=== PATIENT | male | born 1995 | race Caucasian/White ===

== ENCOUNTER 2017-03-02 12:58 | Emergency (ER) | payer OTHER ==
[~2017-03-02] VITALS: Ht 175.3 cm; Wt 76.1 kg
[~2017-03-02 12:58] MED LIST: STATES NO HOME MEDS
[2017-03-02 13:04] VITALS: Ht 175.3 cm; Wt 76.1 kg
[2017-03-02] MEDS ORDERED: LORAZEPAM 2 MG/ML 1 ML VIAL IV STA (13:56)
[2017-03-02] MEDS ORDERED: SODIUM CHLORIDE 0.9% 1000ML 1,000 ML IV ONE ×2 (14:00)
[2017-03-02 14:21] LABS: BASO % 0.1 %; BASO ABS # 0.01 K/uL (0-0.2); COMPLETE YES; EOS % 0.4 %; HEMATOCRIT 45.6 % (42-52); IG% 0.3 %; LYMPH % 16.3 %; MEAN CELL VOLUME 87.4 fL (80-100); MEAN CORPUSCULAR HEMOGLOBIN 29.5 pg (25-34); MEAN CORPUSCULAR HGB CONC 33.8 g/dl (32-36); MEAN PLATELET VOLUME 9.9 fL (7.4-10.4); MONO % 4.9 %; PLATELET COUNT 199 K/uL (130-400); RED BLOOD COUNT 5.22 M/uL (4.7-6.1); WHITE BLOOD COUNT 7.34 K/uL (4.8-10.8)
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
[2017-03-02 14:38] LABS: URINE APPEARANCE CLEAR (CLEAR); URINE BILIRUBIN NEG (NEG); URINE COLOR YELLOW; URINE NITRITE NEG (NEG); URINE SPECIFIC GRAVITY 1.021 (1.000-1.030); UROBILINOGEN NEG (NEG)
[2017-03-02 14:44] LABS: BUN/CREATININE RATIO 14.9 (10-20); CALCIUM 9.2 mg/dl (8.5-10.1); CREATININE 0.91 mg/dl (0.60-1.40); POTASSIUM 3.9 mmol/L (3.5-5.1)
[2017-03-02 14:47] LABS: MANUAL MICROSCOPIC REQUIRED? NO; REVIEW REQ? NO
[2017-03-02 14:47] LABS: ALB/GLOB RATIO 1.2 (0.9-2)
--- NOTE | 2017-03-02 14:54 | DIAGNOSTIC IMAGING REPORT ---
HEAD WITHOUT CONTRAST (CT) CT DOSE: 537.48 mGy.cm HISTORY: Neuropathy. Headache. R sided numbness tingling TECHNIQUE: Multiaxial CT images of the head were performed without the use of intravenous contrast. Comparison: None. Findings: The paranasal sinuses and mastoid air cells are clear. The calvarium and skull base are intact. The ventricles and sulci are within normal limits. There is no mass, hematoma, midline shift, or acute infarct. Impression: No acute intracranial abnormality. The above report was generated using voice recognition software. It may contain grammatical, syntax or spelling errors. Electronically signed by: Bhaskar Contreras M.D. 03/02/2017 2:53 PM Dictated Date/Time: 03/02/2017 2:52 PM
[2017-03-02 14:59] LABS: BENZODIAZEPINE, URINE NEG (NEG); COCAINE,URINE NEG (NEG); PHENCYCLIDINE, URINE NEG (NEG)
[2017-03-02 15:25] LABS: LYME DISEASE AB IGG NEG (NEG); LYME DISEASE AB IGM NEG (NEG)
[2017-03-02] MEDS ORDERED: LORA-741 PO (16:28)
[2017-03-02 16:31] VITALS: BP 132/70; PULSE 86; TEMP 37; O2SAT 96
== END 2017-03-02 16:32 | disposition home or self-care (01) ==
LOC: C.EDB 13:01 → C.EDC 16:32
DX: R29.818 Other symptoms and signs involving the nervous system (principal); F41.9 Anxiety disorder, unspecified; F17.200 Nicotine dependence, unspecified, uncomplicated; Z87.820 Personal history of traumatic brain injury

== ENCOUNTER → 2017-04-09 | Outpatient (CLI) | payer OTHER ==
[~2017-04-09] MED LIST changes: +GADAVIST IV PRN; -STATES NO HOME MEDS
--- NOTE | 2017-04-09 14:23 | DIAGNOSTIC IMAGING REPORT ---
BRAIN COMBO CLINICAL HISTORY: 22 years-old Male presenting with right-sided numbness and tingling with headache. TECHNIQUE: Multisequence, multiplanar MR imaging of the brain was performed before and after the administration of intravenous contrast. IV contrast: 7 mL of Gadavist. COMPARISON: 03/18/2015. FINDINGS: Ventricles and sulci normal in size. Brain parenchyma normal in appearance with preserved steward-white differentiation. No mass effect or midline shift. No hemorrhage or acute territorial infarct. No extra-axial fluid collection. T2 skull base flow voids preserved. No abnormal parenchymal enhancement. Bone marrow signal intensity within the calvarium within normal limits. IMPRESSION: No acute intracranial abnormality. No abnormal enhancement. Electronically signed by: Adán Rashid M.D. 04/09/2017 2:22 PM Dictated Date/Time: 04/09/2017 2:17 PM
== END | disposition home or self-care (01) ==
LOC: C.MRIBC 13:18
PROVIDERS: ATTEND Physician Assistant
DX: R20.0 Anesthesia of skin (principal); R20.2 Paresthesia of skin; R51 Headache

== ENCOUNTER → 2017-05-02 | Outpatient (CLI) | payer OTHER ==
--- NOTE | 2017-05-02 16:11 | EEG Procedure Note ---
EEG Procedure Note Date of Service May 02, 2017. Start / End Times Start Time: 1:42 PM End Time: 2:03 PM Referring Physician [place] Klein History This is a 22-year-old male who presents with numbness, trouble finding words, and memory issues. EEG for further evaluation of possible seizure etiology. Description This is a 21 electrode EEG with a single channel dedicated to limited EKG. The electrodes were placed in accordance with the International 10-20 system. At the start of the recording the patient was in an awake state. Background was well organized and composed of symmetric mixed alpha and beta frequencies. There was a symmetric well-formed moderate amplitude 11 Hz posterior dominant rhythm that was reactive to eye opening and closure. Hyperventilation was not done. Intermittent photic stimulation at various frequencies produced no abnormalities. There was no state changes or sleep transients. Interpretation This is a normal awake only routine EEG. There was no electrographic seizures or epileptiform discharges. Clinical Correlation A normal EEG does not rule out epilepsy if there is a strong clinical suspicion.
== END | disposition home or self-care (01) ==
LOC: C.NEUR 13:31
PROVIDERS: ATTEND Physician Assistant
DX: R29.818 Other symptoms and signs involving the nervous system (principal); R20.0 Anesthesia of skin

== ENCOUNTER 2017-07-14 13:04 | Emergency (ER) | payer OTHER ==
[~2017-07-14] VITALS: Ht 175.3 cm; Wt 71.9 kg
[2017-07-14 13:10] VITALS: TEMP 36.9; Ht 175.3 cm; Wt 71.9 kg
[2017-07-14] MEDS ORDERED: ONDANSETRON 4MG OD TAB PO STA (13:48)
[2017-07-14] MEDS ORDERED: FAMOTIDINE 20 MG TAB PO ONE (14:00)
--- NOTE | 2017-07-14 14:31 | DIAGNOSTIC IMAGING REPORT ---
SOFT TISSUE NECK CLINICAL HISTORY: Neck swelling. COMPARISON STUDY: None. FINDINGS: 2 views of the neck. The trachea is midline and is patent. The lung apices are clear. The epiglottis and prevertebral soft tissues are normal in thickness. No radiopaque foreign bodies. Straightening of the cervical spine. The contours of the hypopharynx are within normal limits. IMPRESSION: No soft tissue abnormality identified within the neck. Electronically signed by: Kendrick Pérez M.D. 07/14/2017 2:29 PM Dictated Date/Time: 07/14/2017 2:27 PM
--- NOTE | 2017-07-14 14:32 | DIAGNOSTIC IMAGING REPORT ---
CHEST 2 VIEWS ROUTINE HISTORY: Short of breath. COMPARISON: None. FINDINGS: The lungs are clear. Cardiac silhouette is normal in size. No pleural effusions. No pneumothorax. IMPRESSION: No acute process. Electronically signed by: Kendrick Pérez M.D. 07/14/2017 2:30 PM Dictated Date/Time: 07/14/2017 2:29 PM
--- NOTE | 2017-07-14 15:09 | EMERGENCY ROOM VISIT NOTE ---
History Report prepared by Didier: Nina Dudley Under the Supervision of: Michael PelletierO. First contact with patient: 13:21 Chief Complaint: ILLNESS Stated Complaint: SWOLLEN TONGUE, CHEST TIGHTNESS History of Present Illness The patient is a 22 year old male who presents to the Emergency Room with complaints of persistent swelling of the tongue that started this morning. The patient describes a history of neurological symptoms that began 7 months [employer], which he states lead him to have "loss of feeling in peripheral nerves". He states that he has been given an MRI recently, which came back normal. He notes that today is the first time his tongue has swollen up. He describes his tongue as feeling "swollen around the edges, turning white, with an indent in the middle". He also notes that the "outer parts" of his throat feel swollen. He states that the discomfort in his throat worsens at night but is relieved when laying down. He also describes his discomfort as "a pinch in his neck". The patient states he has been experiencing chest pain, along with intermittent abdominal bloating. He admits to being nauseas. The patient notes that the only changes to his routine have been the use of a new shampoo and drinking orange juice. The patient denies any tobacco use, but admits to being an "occasional" alcohol drinker. Source of History: patient Onset: [employer] Position: tongue Quality: other (swelling) Timing: other (persistent) Modifying Factors (Worsening): other (at night) Modifying Factors (Relieving): other (laying down ) Associated Symptoms: + chest pain, + nausea, + abdominal pain (bloating) Review of Systems See HPI for pertinent positives & negatives. A total of 10 systems reviewed and were otherwise negative. Past Medical & Surgical Medical Problems: (1) Anxiety (2) Neurological symptoms Social History Smoking Status: Never Smoker Alcohol Use: none, occasionally Marital Status: single Housing Status: lives with roommate Occupation Status: [employer] student Current/Historical Medications Scheduled Prednisone (Prednisone Tab), 40 MG PO DAILY Ranitidine Hcl (Zantac), 150 MG PO BID Allergies Coded Allergies: No Known Allergies (Unverified , 03/02/17) Physical Exam Vital Signs Date Time Temp Pulse Resp B/P (MAP) Pulse Ox O2 Delivery O2 Flow Rate FiO2 07/14/17 15:45 84 18 123/74 96 Room Air 07/14/17 13:10 36.9 110 18 163/96 97 Room Air Physical Exam GENERAL: Patient is awake and alert in no acute distress patient is resting comfortably and showing no signs of anxiety EYES: The conjunctivae are clear. The pupils are round and reactive. EARS, NOSE, MOUTH AND THROAT: No angioedema of the lips, with mild swelling of the tongue, appears uniform, posterior oropharynx is clear. The nose is without any evidence of any deformity. Mucous membranes are moist tongue is midline. TM' s are clear bilaterally. NECK: The neck is nontender and supple. RESPIRATORY: Normal respiratory effort is noted there is no evidence of wheezing rhonchi or rales CARDIOVASCULAR: Regular rate and rhythm noted there no murmurs rubs or gallops normal S1 normal S2 GASTROINTESTINAL: The abdomen is soft. Bowel sounds are present in all quadrants. Abdomen is nontender MUSCULOSKELETAL/EXTREMITIES: There is no evidence of gross deformity full range of motion is noted in the hips and shoulders SKIN: There is no obvious evidence of any rash. There are no petechiae, pallor or cyanosis noted. NEUROLOGIC: Patient is awake alert and oriented x3 strength is symmetric patellar reflexes are 2+ bilaterally Medical Decision & Procedures ER Provider Diagnostic Interpretation: CHEST 2 VIEWS ROUTINE HISTORY: Short of breath. COMPARISON: None. FINDINGS: The lungs are clear. Cardiac silhouette is normal in size. No pleural effusions. No pneumothorax. IMPRESSION: No acute process. Electronically signed by: Kendrick Pérez M.D. 07/14/2017 2:30 PM SOFT TISSUE NECK CLINICAL HISTORY: Neck swelling. COMPARISON STUDY: None. FINDINGS: 2 views of the neck. The trachea is midline and is patent. The lung apices are clear. The epiglottis and prevertebral soft tissues are normal in thickness. No radiopaque foreign bodies. Straightening of the cervical spine. The contours of the hypopharynx are within normal limits. IMPRESSION: No soft tissue abnormality identified within the neck. Electronically signed by: Kendrick Pérez M.D. 07/14/2017 2:29 PM Medications Administered Medications (Trade) Dose Ordered Sig/Afua Route Start Time Stop Time Status Last Admin Dose Admin Diphenhydramine HCl (Benadryl Cap) 25 mg NOW ONCE PO 07/14/17 14:00 11/26/17 14:01 DC 07/14/17 13:59 25 MG Famotidine (Pepcid Tab) 20 mg NOW ONCE PO 07/14/17 14:00 07/14/17 14:01 DC 07/14/17 14:00 20 MG Prednisone (PredniSONE TAB) 60 mg NOW STAT PO 07/14/17 13:48 07/14/17 13:50 DC 07/14/17 13:59 60 MG Ondansetron HCl (Zofran Odt) 4 mg NOW STAT PO 07/14/17 13:48 07/14/17 13:50 DC 07/14/17 13:59 4 MG ED Course 1346: The patient was evaluated in room B9. A complete history and physical examination were performed. 1348: Ordered Prednisone 60mh PO and Ondansetron HCL 4mg PO. 1400: Ordered Diphenhydramine HCL 25 mg PO and Famotidine 20mg PO. 1640: I reevaluated the patient. He is feeling well and resting comfortably. I discussed his discharge instructions and he verbalized complete understanding and agreement. Medical Decision Prior records/ancillary studies reviewed. Triage Nursing notes reviewed. The patient's history was concerning for possible allergic reaction. Differential diagnosis: Etiologies such as allergic reaction, anaphylaxis, urticaria, Miller-Raphael syndrome, toxic epidermal necrolysis, erythema multiforme, cellulitis, as well as others were entertained. The patient is a 22-year-old male who presented to the emergency department for an evaluation of possible allergic reaction. The patient was having tongue swelling. On evaluation he did not have significant swelling in the posterior oropharynx and may have had mild swelling over the tongue. This is been ongoing for quite some time. It did not appear to worsen while he was in the emergency department. He was given medications for possible allergic reaction. He was reevaluated multiple times. I discussed the patient's radiographic studies with him. He was encouraged to continue all medications as prescribed and follow-up with his doctor this week. Otherwise she was encouraged to return the emergency Department immediately if symptoms change worsen or the need arises. Medication Reconcilliation Current Medication List: was personally reviewed by me Blood Pressure Screening Patient's blood pressure: Elevated blood pressure Blood pressure disposition: Elevated BP felt to be situational Impression Primary Impression: Allergic reaction Scribe Attestation The scribe's documentation has been prepared under my direction and personally reviewed by me in its entirety. I confirm that the note above accurately reflects all work, treatment, procedures, and medical decision making performed by me. Departure Information Dispostion Home / Self-Care Prescriptions Ranitidine Hcl (ZANTAC) 150 Mg Tab 150 MG PO BID, #60 TAB Prov: Gilberto Arce, DO 07/14/17 Prednisone (Prednisone Tab) 20 Mg Tab 40 MG PO DAILY, #10 TAB Prov: Gilberto Arce, DO 07/14/17 Referrals No Doctor, Assigned (PCP) Patient Instructions ED Allerg [facility], My [facility] Additional Instructions Continue all medications as prescribed. Follow-up with your family doctor within the next 2 days. Return to the emergency department immediately if symptoms worsen or if need arises. Continue using Benadryl 25 milligrams every 6 hours for symptomatic relief. [address] while taking Benadryl. Problem Qualifiers Primary Impression: Allergic reaction Encounter type: initial encounter Qualified Codes: T78.40XA - Allergy, unspecified, initial encounter
[2017-07-14 15:45] VITALS: BP 123/74; PULSE 84; O2SAT 96
[2017-07-14] MEDS ORDERED: PRED20TA2 PO (16:01)
[2017-07-14] MEDS ORDERED: RANI150T3 PO (16:01)
== END 2017-07-14 16:45 | disposition home or self-care (01) ==
LOC: C.EDB 13:05
DX: T78.40XA Allergy, unspecified, initial encounter (principal); R03.0 Elevated blood-pressure reading, without diagnosis of hypertension

== ENCOUNTER 2017-11-17 20:54 | Emergency (ER) | payer OTHER ==
[~2017-11-17] VITALS: Ht 175.3 cm; Wt 70.2 kg
[~2017-11-17 20:54] MED LIST changes: -GADAVIST IV PRN; +PRED20TA2 PO; +RANI150T3 PO
[2017-11-17 20:57] VITALS: TEMP 37.3; Ht 175.3 cm; Wt 70.2 kg
[2017-11-17] MEDS ORDERED: FEXO1TAB49 PO (21:21)
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
--- NOTE | 2017-11-17 21:42 | DIAGNOSTIC IMAGING REPORT ---
SINGLE VIEW CHEST CLINICAL HISTORY: Dyspnea. FINDINGS: An AP, portable, upright chest radiograph is compared to study dated 07/14/2017. The cardiomediastinal silhouette is unremarkable. The lungs and pleural spaces are clear. No pneumothorax is seen. The bony thorax is grossly intact. IMPRESSION: No active disease in the chest. Electronically signed by: Carlyle Connelly M.D. 11/17/2017 9:41 PM Dictated Date/Time: 11/17/2017 9:41 PM
[2017-11-17 22:04] VITALS: BP 122/80; PULSE 82; O2SAT 98
== END 2017-11-17 22:06 | disposition home or self-care (01) ==
LOC: C.EDB 20:55 → C.EDC 22:06
DX: M54.2 Cervicalgia (principal); F41.9 Anxiety disorder, unspecified; Z80.9 Family history of malignant neoplasm, unspecified; Z82.49 Family history of ischemic heart disease and other diseases of the circulatory system; Z84.1 Family history of disorders of kidney and ureter; Z88.8 Allergy status to other drugs, medicaments and biological substances